=== PATIENT | female | born 1965 | race Caucasian/White ===

== ENCOUNTER → 2016-07-04 | Outpatient (CLI) | payer BC ==
[~2016-07-04] MED LIST: ALBU4TAB10 PO; CLRD24 PO
--- NOTE | 2016-07-05 14:25 | MAMMOGRAPHY REPORT ---
BILATERAL DIGITAL SCREENING MAMMOGRAM TOMOSYNTHESIS WITH CAD: 07/04/2016 CLINICAL HISTORY: Routine screening. Patient has no complaints. TECHNIQUE: Breast tomosynthesis in addition to standard 2D mammography was performed. Current study was also evaluated with a Computer Aided Detection (CAD) system. COMPARISON: Comparison is made to exams dated: 12/05/2012 mammogram, 11/17/2010 mammogram - [facility], 01/23/2007, 11/08/2009 mammogram, and 12/04/2011 mammogram - [facility]. BREAST COMPOSITION: The tissue of both breasts is heterogeneously dense, which may obscure small ma sses. FINDINGS: There is stable asymmetry in the left upper outer quadrant. The overall, the parenchymal pattern is unchanged bilaterally. No new suspicious mass, architectural distortion or cluster of mi crocalcifications is seen. IMPRESSION: ACR BI-RADS CATEGORY 1: NEGATIVE There is no mammographic evidence of malignancy. A 1 year screening mammogram is recommended. The p atient will receive written notification of the results. Approximately 10% of breast cancers are not detected with mammography. A negative mammographic repor t should not delay biopsy if a clinically suggestive mass is present. Marybeth Candelaria M.D. ay/:07/05/2016 08:04:26 Multimedia Manager: Nurys RIVERO(Ignacia)(Suki), [facility] letter sent: Normal 1/2 BI-RADS Code: ACR BI-RADS Category 1: Negative
== END | disposition home or self-care (01) ==
LOC: C.MAMM 15:29
PROVIDERS: ATTEND Family Medicine
DX: Z12.31 Encounter for screening mammogram for malignant neoplasm of breast (principal)

== ENCOUNTER → 2017-07-05 | Outpatient (CLI) | payer OTHER ==
--- NOTE | 2017-07-05 15:15 | MAMMOGRAPHY REPORT ---
BILATERAL DIGITAL SCREENING MAMMOGRAM TOMOSYNTHESIS WITH CAD: 07/05/2017 CLINICAL HISTORY: Routine screening. TECHNIQUE: Breast tomosynthesis in addition to standard 2D mammography was performed. Current study was also evaluated with a Computer Aided Detection (CAD) system. COMPARISON: Comparison is made to exams dated: 07/04/2016 mammogram, 12/05/2012 mammogram, 12/04/2011 m ammogram, 11/17/2010 mammogram, 11/08/2009 mammogram - [facility], and 01/23/2007. BREAST COMPOSITION: The tissue of both breasts is heterogeneously dense, which may obscure small mas ses. FINDINGS: No suspicious masses, calcifications, or areas of architectural distortion are noted in ei ther breast. There has been no significant interval change compared to prior exams. IMPRESSION: ACR BI-RADS CATEGORY 1: NEGATIVE There is no mammographic evidence of malignancy. A 1 year screening mammogram is recommended. The pa tient will receive written notification of the results. Approximately 10% of breast cancers are not detected with mammography. A negative mammographic report should not delay biopsy if a clinically suggestive mass is present. Jordyn Cowan M.D. ah/:07/05/2017 12:08:46 Supervisor Hard Candy: Nurys RIVERO(R)(M), [facility] letter sent: Normal 1/2 BI-RADS Code: ACR BI-RADS Category 1: Negative
== END | disposition home or self-care (01) ==
LOC: C.MAMM 08:35
PROVIDERS: ATTEND Family Medicine
DX: Z12.31 Encounter for screening mammogram for malignant neoplasm of breast (principal)

== ENCOUNTER 2023-08-14 09:07 | Observation (INO) ==
--- NOTE | 2023-08-06 13:34 | Anesthesiology Consultation ---
Date of Service August 06, 2023 Assessment & Plan (1) Encounter for pre-operative examination: Chart Review Chart Review: hand riveter initiated History Surgery Operation Date: 08/14/23 10:00 Proposed Procedures p Colonoscopy Dr. Rui Fabian MD Height/Weight Height: 5 ft 4 in Weight: 64.41 kg Allergies Allergy/AdvReac Type Severity Reaction Status Date / Time metronidazole [From Flagyl] Allergy Unknown Hives Verified 08/03/23 08:31 Medications Home Medications Medication Instructions Recorded Confirmed Last Taken peg 3350-sod sulf,tjlxn-ale-pvr See Rx Instructions PO .COMPLEX #2 07/31/23 Unknown 178.7-7.3-0.5-1.12-0.9 gram oral mL soln (Suflave) multivitamin 1 cap PO DAILY 08/03/23 08/03/23 Unknown Past Medical History Medical History Elevated glucose level on last test/no mention of pre diabetes. Borderline high cholesterol Seasonal asthma hx Borderline high blood pressure white coat syndrome Past Family History Family History Sister Breast cancer Father Colorectal cancer Prostate cancer Hypertension Mother Dyslipidemia Hypertension Denies family history of Ovarian cancer Myocardial infarction Lung cancer Past Surgical History Surgical History Hx of oral surgery Hx of hysterectomy Hx of section Social History Smoking Status: Former smoker Do You Dip or Chew Tobacco: No Smoking End Date: 1999 Hx Alcohol Use: Yes Alcohol type: wine alcohol intake frequency: other Alcohol Intake Frequency Comment: 5-6 per week Hx Substance Use: No substance use type: does not use Lab Results Chemistry (BMP) Results BMP Results: Sodium 137 mmol/L (136-145) 05/01/23 Potassium 4.5 mmol/L (3.5-5.1) 05/01/23 Chloride 103 mmol/L (98-107) 05/01/23 Carbon Dioxide 27 mmol/L (21-32) 05/01/23 Anion Gap 7 (3-11) 05/01/23 BUN 12 mg/dl (6-23) 05/01/23 Creatinine 0.76 mg/dl (0.6-1.2) 05/01/23 Glucose 89 mg/dl (70-99(Fasting)) 05/01/23 CBC Results Results Complete Blood Count Results: RBC 4.75 M/uL (4.20-5.40) 05/01/23 WBC 5.77 K/ul (4.8-10.8) 05/01/23 Hgb 15.0 g/dl (12.0-16.0) 05/01/23 Hct 45.8 % (37.0-47.0) 05/01/23 Plt Count 276 K/uL (130-400) 05/01/23
[2023-08-14] MEDS ORDERED: SIMETHICONE (ENDO) IR PRN (09:21)
--- NOTE | 2023-08-14 09:23 | History & Physical Report ---
Date of Service August 14, 2023 Assessment & Plan (1) Positive colorectal cancer screening using Cologuard test: Plan proceed with colonoscopy. risks/benefits and procedure discussed with patient, who agrees to proceed History of Present Illness Primary Care Provider: Blane Loco MD 58 yo female here for colonoscopy. Allergies Allergy/AdvReac Type Severity Reaction Status Date / Time metronidazole [From Flagyl] Allergy Unknown Hives Verified 08/14/23 09:22 Home Medications Medication Instructions Recorded Confirmed Type peg 3350-sod sulf,arwfz-gld-rbj See Rx Instructions PO .COMPLEX #2 07/31/23 Rx 178.7-7.3-0.5-1.12-0.9 gram oral mL soln (Suflave) multivitamin 1 cap PO DAILY 08/03/23 08/03/23 History Past Med/Surg History Medical History Elevated glucose level on last test/no mention of pre diabetes. Borderline high cholesterol Seasonal asthma hx Borderline high blood pressure white coat syndrome Surgical History Hx of oral surgery Hx of hysterectomy Hx of section Family History Sister Breast cancer Father Colorectal cancer Prostate cancer Hypertension Mother Dyslipidemia Hypertension Denies family history of Ovarian cancer Myocardial infarction Lung cancer Social History Smoking Status: Former smoker Tobacco Type: Cigarettes Age Quit Using Tobacco: 34; Smoking End Date: 1999; Do You Dip or Chew Tobacco: No; Hx Alcohol Use: Yes Alcohol type: wine Hx Substance Use: No Preferred Language: Khmer Communication Ability: Effective Visual Impairment: Limited Hearing Ability: Normal Claim Review Medical Director Required: No Beliefs That Will Affect Care: None marital status: Current Living Situation: Spouse current occupational status: retired How many Children do You have: 1 Feels Safe at Home: Yes Childhood Exposure to Second-Hand Smoke: No caffeine: Yes Dental Care, Regularly: Yes Physical Activity Frequency: 3-4 Times per Week Seatbelt Use: always Sunscreen Use: No Assistive Devices: Other Assistive Devices Comment: reading glasses Physical Exam Constitutional: WD/WN, vitals as above Respiratory: normal respiratory effort, lungs clear to auscultation Cardiovascular: RRR, no murmur, no edema Gastrointestinal (Abdomen): normal bowel sounds, soft, nontender, no hepatosplenomegaly Musculoskeletal: Head/Neck/Chest: normocephalic and head atraumatic Psychiatric: Orientation: alert and cooperative Affect: euthymic affect Coding Level of Care Code None Diagnoses Positive colorectal cancer screening using Cologuard test R19.5
[2023-08-14] MEDS: SODIUM CHLORIDE 0.9% 500 ML IV SCH (09:43)
--- NOTE | 2023-08-14 10:25 | GI REPORT ---
Addendum Number: 1 Addendum Date: 08/14/2023 2:08:15 PM patient vomited shortly after being sedated, after discussion with anesthesia patient will be admitted/observed overnight, hospitalist team notified and will admit her. Quintin Fabian MD 08/14/2023 2:09:10 PM This report has been signed electronically. Patient Name: Melissa Ross Procedure Date: 08/14/2023 9:30 AM Date of : 1965 Admit Type: Outpatient Age: 58 Gender: Female Attending MD: Quintin Fabian MD, Procedure: Colonoscopy Providers: Quintin Fabian MD Referring MD: Blane Loco Indications: Positive Cologuard test Medicines: Monitored Anesthesia Care Complications: vomiting Estimated Blood Loss: Estimated blood loss: none. Procedure: Pre-Anesthesia Assessment: - Prior Anticoagulants: The patient has taken no anticoagulant or antiplatelet agents. - ASA Grade Assessment: II - A patient with mild systemic disease. After I obtained informed consent, the scope was passed under direct vision. Throughout the procedure, the patient's blood pressure, pulse, and oxygen saturations were monitored continuously. The Colonoscope was introduced through the anus with the intention of advancing to the cecum. The scope was advanced to the sigmoid colon before the procedure was aborted. Medications were given. The quality of the bowel preparation was adequate to identify polyps greater than 5 mm in size. Findings: patient began vomiting shortly after starting the procedure, procedure aborted. Impression: - No specimens collected. Recommendation: - Discharge patient to home (with escort). - Resume regular diet today. - Repeat colonoscopy at the next available appointment. Quintin Fabian MD 08/14/2023 10:24:38 AM This report has been signed electronically. Note Initiated On: 08/14/2023 9:30 AM Number of Addenda: 1 I attest to the content of the Intraoperative Record and orders documented therein, exceptions below {[id number]}
[2023-08-14] MEDS ORDERED: ATROPINE SULFATE 0.1 MG/ML 10ML SYR IV PRN (10:44)
[2023-08-14] MEDS ORDERED: ALBUTEROL 0.083% NEBU SOLN 3 ML VIAL INH PRN (10:44)
[2023-08-14] MEDS ORDERED: ePHEDrine sulfate 50 MG/ML AMP IV PRN (10:44)
--- NOTE | 2023-08-14 11:26 | XRay Report ---
XR chest 1V portable CLINICAL HISTORY: Possible aspiration during colonoscopy COMPARISON STUDY: Chest radiograph June 01, 2008. Chest CT April 14, 2010. FINDINGS: Mild left lung volume loss is noted. There is no pneumothorax or pleural effusion. Right moise ng is clear. Multifocal airspace opacities within the left mid and lower lung is present. There is no evidence for pulmonary edema. Cardiomediastinal silhouette is unremarkable. IMPRESSION: 1. Multifocal left mid and lower lung airspace opacities. Given the clinical history, the findings ar e suspicious for aspiration pneumonitis. Pneumonia could appear similar. Radiographic follow-up to en sure resolution is recommended. 3. Mild left lung volume loss. ACT 112: Negative or not required by law. Electronically signed by: Ranjeet Bush M.D. 08/14/2023 11:25 AM
--- NOTE | 2023-08-14 13:19 | Communication Note ---
Date of Service: August 14, 2023 At the beginning of pt's colonscopy she vomited green brown tinged fluid. She desaturated very briefly in to the sixties. The procedure was stopped and pt was taken to PACU. There she c/o chest pain and tightness. Sat was in the 90's on supplemental O2. On exam she had marked ronchi and wheezing, left > right. She was given albuterol neb treatment with fairly good results. CXR showed possible opacities in left lung. Approximately an hour later she felt better but on exam faint wheezes and rochi persisted. Exam was unchanged 45 minutes later. We discussed overnight observation vs discharge to home. Pt preferred to stay overnight. I discussed this with Dr Gloria who agreed to keep her. He will arrange admission.
--- NOTE | 2023-08-14 13:56 | History & Physical Report ---
Date of Service August 14, 2023 Assessment & Plan (1) Aspiration pneumonitis: Plan: Post colonoscopy with nausea, vomiting Observation to assess for worsening overnight Incentive spirometer, flutter valve No high risk concerns for pneumonia therefore antibiotics deferred - consider PRN dose on discharge if she starts to get worse or febrile Follow up CXR in 4 weeks to assess for resolution (2) Tachycardia: Plan: Suspect secondary to duoneb and current aspiration, monitor over night on telemetry Plan VTE Prophylaxis - low risk Diet - clear liquid, advance as tolerated Disposition - observation on med/tele Admission and Anticipated Discharge Date Admission Date: August 14, 2023 History of Present Illness Chief Complaint: Aspiration during colonoscopy Primary Care Provider: Blane Loco MD Melissa Hassan is a 58 year old female who underwent colonoscopy which was abandoned earlier today due to nausea and vomiting. CXR after vomiting concerning for aspiration in left lung and she was significantly hypoxic briefly into the 60s with rhonchi and wheezing. She improved after a duoneb and no longer hypoxic on room air. Dr Fabian requested observation overnight in hospital. She continues to feel slightly nauseous but significantly better when seen. No current chest pain or shortness of breath. Allergies Allergy/AdvReac Type Severity Reaction Status Date / Time metronidazole [From Flagyl] Allergy Unknown Hives Verified 08/14/23 09:22 Home Medications Medication Instructions Recorded Confirmed Type peg 3350-sod sulf,dphoi-gsg-pbg See Rx Instructions PO .COMPLEX #2 07/31/23 Rx 178.7-7.3-0.5-1.12-0.9 gram oral mL soln (Suflave) multivitamin 1 cap PO DAILY 08/03/23 08/14/23 History Past Med/Surg History Medical History Elevated glucose level on last test/no mention of pre diabetes. Borderline high cholesterol Seasonal asthma hx Borderline high blood pressure white coat syndrome Surgical History Hx of oral surgery Hx of hysterectomy Hx of section Family History Sister Breast cancer Father Colorectal cancer Prostate cancer Hypertension Mother Dyslipidemia Hypertension Denies family history of Ovarian cancer Myocardial infarction Lung cancer Social History Smoking Status: Former smoker Tobacco Type: Cigarettes Age Quit Using Tobacco: 34; Smoking End Date: 1999; Do You Dip or Chew Tobacco: No; Hx Alcohol Use: Yes Alcohol type: wine Hx Substance Use: No Preferred Language: Faroese Communication Ability: Effective Visual Impairment: Limited Hearing Ability: Normal M48/M60 Tank Driver Required: No Beliefs That Will Affect Care: None marital status: Current Living Situation: Spouse current occupational status: retired How many Children do You have: 1 Feels Safe at Home: Yes Childhood Exposure to Second-Hand Smoke: No caffeine: Yes Dental Care, Regularly: Yes Physical Activity Frequency: 3-4 Times per Week Seatbelt Use: always Sunscreen Use: No Assistive Devices: Other Assistive Devices Comment: reading glasses Review of Systems Review of Systems: All systems reviewed & are unremarkable except as noted in HPI & below Physical Exam Constitutional: WD/WN, vitals as above ENMT: external ear and nose normal, oropharynx normal Respiratory: normal respiratory effort; no respiratory distress Auscultation: + crackles (mild left posterior); breath sounds present, no diminished lung sounds, no rales, no rhonchi and no wheezes Cardiovascular: Rate/Rhythm: regular rhythm and + tachycardic Heart Sounds: no murmur Extremities: normal capillary refill; no calf tenderness and no pedal edema Gastrointestinal (Abdomen): normal bowel sounds, soft, nontender, no hepatosplenomegaly Musculoskeletal: no cyanosis or clubbing, extremities motor strength 5/5 Skin: no rashes, warm and dry Neurologic: moves all extremities and awake; not confused Psychiatric: A+Ox3, euthymic affect Results & Data Results & Data Vital Signs (Past 12 Hours) Vital Signs Temp Pulse Resp BP Pulse Ox O2 Del Method O2 Flow Rate 08/14/23 11:41 112 H 20 150/99 H 99 Room Air 08/14/23 11:26 117 H 20 173/103 H 92 Room Air 08/14/23 11:11 131 H 20 144/73 H 98 Oxymask 2 08/14/23 10:58 87 20 148/90 H 96 Oxymask 6 08/14/23 10:41 100 H 20 150/102 H 96 Oxymask 6 08/14/23 10:28 100 H 20 150/102 H 96 Oxymask 6 08/14/23 09:33 173/109 H 08/14/23 09:26 36.5 C 104 H 16 96 Room Air Laboratory Results Abnormal lab results 08/14/23 Range/Units 19:15 WBC 17.95 H (4.8-10.8) K/ul RDW Std Deviation 46.7 H (36.4-46.3) fL Neut # (Auto) 15.82 H (1.40-6.50) K/uL [place] # (Auto) 0.78 H (0.11-0.59) K/uL Sodium 132 L (136-145) mmol/L Carbon Dioxide 20 L (21-32) mmol/L Glucose 136 H (70-99(Fasting)) mg/dl Magnesium 1.6 L (1.7-2.4) mg/dl Diagnostic Findings XR chest 1V portable CLINICAL HISTORY: Possible aspiration during colonoscopy COMPARISON STUDY: Chest radiograph June 01, 2008. Chest CT April 14, 2010. FINDINGS: Mild left lung volume loss is noted. There is no pneumothorax or pleural effusion. Right lung is clear. Multifocal airspace opacities within the left mid and lower lung is present. There is no evidence for pulmonary edema. Cardiomediastinal silhouette is unremarkable. IMPRESSION: 1. Multifocal left mid and lower lung airspace opacities. Given the clinical history, the findings are suspicious for aspiration pneumonitis. Pneumonia could appear similar. Radiographic follow-up to ensure resolution is recommended. 3. Mild left lung volume loss. ECG Rate (beats per minute): 114 Rhythm: sinus tachycardia Findings: + other (non-specific ST abnormality in anterior leads) Comparison ECG Date: from (April 14, 2010) Change: the following changes noted (Nonspecific ST abnormality now present Anterior leads) Code Status & VTE Plan Code Status Full VTE Prophylaxis Plan VTE Prophylaxis will be ordered: No PG Care Time/CCT Total # of Minutes Spent Total Time Spent with Patient: Total time spent is greater than 50% in coordination of care (as documented) at patient's floor/unit and/or counseling patient: Coding Level of Care Code 26302 INT INP/OBS CARE 2/55MIN Diagnoses Aspiration pneumonitis J69.0 Tachycardia R00.0
--- NOTE | 2023-08-14 14:21 | Anesthesiology Progress Note ---
Date of Service August 14, 2023 Anesthesia Post Procedure Vital Signs Vital Signs: Temp Pulse Resp BP Pulse Ox O2 Del Method O2 Flow Rate 08/14/23 11:41 112 H 20 150/99 H 99 Room Air 08/14/23 11:26 117 H 20 173/103 H 92 Room Air 08/14/23 11:11 131 H 20 144/73 H 98 Oxymask 2 08/14/23 10:58 87 20 148/90 H 96 Oxymask 6 08/14/23 10:41 100 H 20 150/102 H 96 Oxymask 6 08/14/23 10:28 100 H 20 150/102 H 96 Oxymask 6 08/14/23 09:33 173/109 H 08/14/23 09:26 36.5 C 104 H 16 96 Room Air Transfer of Care Handoff Completed per policy Notes Mental Status: alert / awake / arousable and participated in evaluation Patient Amnestic to Procedure: Yes Nausea / Vomiting: adequately controlled Pain: adequately controlled Airway Patency, RR, SpO2: stable & adequate BP & HR: stable & adequate Hydration State: stable & adequate Anesthetic Complications: no major complications apparent Notes: Pt to be admitted. See previous note for details.
[2023-08-14] MEDS ORDERED: ACETAMINOPHEN 325 MG TAB PO PRN (15:07)
[2023-08-14] MEDS ORDERED: ONDANSETRON INJ 2 MG/ML 2 ML VIAL IV PRN (15:07)
[2023-08-14] MEDS: MIDAZOLAM HCL 1 MG/ML 2ML VIAL ONE (15:08)
[2023-08-14] MEDS: LIDOCAINE 2% 2 ML VIAL/AMP(20MG/ML) INFIL ONE (15:09)
[2023-08-14] MEDS: PROPOFOL IV EMULSION 10 MG/ML 20 ML VIAL IV ONE (15:09)
[2023-08-14] MEDS: ONDANSETRON INJ 2 MG/ML 2 ML VIAL ONE (15:09)
--- NOTE | 2023-08-14 15:15 | Electrocardiogram Report ---
Test Reason : Blood Pressure : / mmHG Vent. Rate : 114 BPM Atrial Rate : 114 BPM P-R Int : 152 ms QRS Dur : 080 ms QT Int : 326 ms P-R-T Axes : 066 032 079 degrees QTc Int : 449 ms Sinus tachycardia Possible Left atrial enlargement Nonspecific ST abnormality Abnormal ECG When compared with ECG of 14-APR-2010 12:04, Nonspecific ST abnormality now present Anterior leads Confirmed by Peng Elias ([id number]) on 08/14/2023 3:15:28 PM Referred By: Blane Loco Confirmed By:Peng Elias
[2023-08-14 19:46] LABS: Basophils # (auto) 0.07 K/uL (0.00-0.20); Basophils % (auto) 0.4 %; Hematocrit (blood only) 42.8 % (37.0-47.0); Hemoglobin 14.4 g/dl (12.0-16.0); Immature Granulocytes # (auto) 0.06 K/uL (0.01-0.20); Immature Granulocytes % (auto) 0.3 %; Lymphocytes # (auto) 1.22 K/uL (1.20-3.40); Lymphocytes % (auto) 6.8 %; Mean Corpuscular Hemoglobin 31.4 pg (25.0-34.0); Mean Corpuscular Hgb Conc 33.6 g/dL (32.0-36.0); Mean Corpuscular Volume 93.2 fL (80.0-100.0); Mean Platelet Volume 9.8 fL (9.4-12.4); Monocytes # (auto) 0.78 K/uL (0.11-0.59); Monocytes % (auto) 4.3 %; Neutrophils # (auto) 15.82 K/uL (1.40-6.50); Neutrophils % (auto) 88.2 %; Platelet Count 289 K/uL (130-400); RDW Coefficient of Variation 13.6 % (11.5-14.5); RDW Standard Deviation 46.7 fL (36.4-46.3); Red Blood Count 4.59 M/uL (4.20-5.40); White Blood Count 17.95 K/ul (4.8-10.8)
[2023-08-14 20:02] LABS: BUN Creatinine Ratio 11.4 (10-20); Calcium 9.3 mg/dl (8.6-10.3); Creatinine Clr Calc Pharmacy 75.6 ml/min; Est GFR (African American) 110.7 ml/min; Est GFR (Non-African American) 95.5 ml/min; Magnesium 1.6 mg/dl (1.7-2.4); Potassium 4.3 mmol/L (3.5-5.1)
[2023-08-14] MEDS: MAGNESIUM SULFATE / D5W 1 GM/100 ML BAG IV SCH (21:20)
[2023-08-14] MEDS: SODIUM CHLORIDE 0.9% 1,000 ML IV ONE (21:20)
[2023-08-14] MEDS: SODIUM CHLORIDE 0.9% 1,000 ML IV SCH (22:20)
[2023-08-15 08:37] LABS: Basophils # (auto) 0.06 K/uL (0.00-0.20); Basophils % (auto) 0.7 %; Eosinophils # (auto) 0.06 K/uL (0.00-0.50); Eosinophils % (auto) 0.7 %; Hematocrit (blood only) 40.7 % (37.0-47.0); Immature Granulocytes # (auto) 0.02 K/uL (0.01-0.20); Immature Granulocytes % (auto) 0.2 %; Lymphocytes # (auto) 2.23 K/uL (1.20-3.40); Lymphocytes % (auto) 24.7 %; Mean Corpuscular Hemoglobin 30.9 pg (25.0-34.0); Mean Corpuscular Hgb Conc 31.9 g/dL (32.0-36.0); Mean Corpuscular Volume 96.7 fL (80.0-100.0); Mean Platelet Volume 9.8 fL (9.4-12.4); Monocytes # (auto) 0.72 K/uL (0.11-0.59); Neutrophils # (auto) 5.93 K/uL (1.40-6.50); Neutrophils % (auto) 65.7 %; Platelet Count 257 K/uL (130-400); RDW Coefficient of Variation 13.8 % (11.5-14.5); RDW Standard Deviation 49.4 fL (36.4-46.3); Red Blood Count 4.21 M/uL (4.20-5.40); White Blood Count 9.02 K/ul (4.8-10.8)
[2023-08-15 09:11] LABS: Calcium 8.6 mg/dl (8.6-10.3); Magnesium 2.2 mg/dl (1.7-2.4)
[2023-08-15 09:16] LABS: BUN Creatinine Ratio 10.8 (10-20); Creatinine Clr Calc Pharmacy 81.5 ml/min; Est GFR (African American) 113.4 ml/min; Est GFR (Non-African American) 97.9 ml/min
--- NOTE | 2023-08-15 16:41 | Discharge Summary ---
Date of Service August 15, 2023 Admission HPI Per Admitting Provider Melissa Hassan is a 58 year old female who underwent colonoscopy which was abandoned earlier today due to nausea and vomiting. CXR after vomiting concerning for aspiration in left lung and she was significantly hypoxic briefly into the 60s with rhonchi and wheezing. She improved after a duoneb and no longer hypoxic on room air. Dr Fabian requested observation overnight in hospital. She continues to feel slightly nauseous but significantly better when seen. No current chest pain or shortness of breath. Admission Exam Per Admitting Provider Constitutional: WD/WN, vitals as above ENMT: external ear and nose normal, oropharynx normal Respiratory: normal respiratory effort; no respiratory distress Auscultation: + crackles (mild left posterior); breath sounds present, no diminished lung sounds, no rales, no rhonchi and no wheezes Cardiovascular: Rate/Rhythm: regular rhythm and + tachycardic Heart Sounds: no murmur Extremities: normal capillary refill; no calf tenderness and no pedal edema Gastrointestinal (Abdomen): normal bowel sounds, soft, nontender, no hepatosplenomegaly Musculoskeletal: no cyanosis or clubbing, extremities motor strength 5/5 Skin: no rashes, warm and dry Neurologic: moves all extremities and awake; not confused Psychiatric: A+Ox3, euthymic affect Principal Diagnosis Aspiration pneumonitis Discharge Exam General: No acute distress, nondiaphoretic, well-developed, well-nourished. Skin: The skin was without rashes, erythema, edema, or bruising. Cardiac: Regular rate and rhythm without murmurs gallops or rubs. Pulm: No respiratory distress. Some bronchial coughing. Mild crackles in left posterior bases. No diminished lung sounds, no rales, no rhonchi, no wheezes. No retractions or accessory muscle use. Abdominal: Positive bowel sounds x 4. Soft, nontender, without masses or organomegaly. No guarding or rebound tenderness. Neuro: A&O x3. No focal neurological deficits. Discharge Data Allergies Allergy/AdvReac Type Severity Reaction Status Date / Time metronidazole [From Flagyl] Allergy Unknown Hives Verified 08/14/23 09:22 Procedures Performed Operation Date: 08/14/23 10:00 Actual Procedures p Colonoscopy - Quintin Fabian MD Hospital Course (1) Aspiration pneumonitis: - Patient underwent colonoscopy on 08/14/2023 which was abandoned due to nausea and vomiting. CXR after vomiting concerning for aspiration and left lung. Patient was significantly hypoxic briefly into the 60s with rhonchi and wheezing. She improved after a DuoNeb and remained stable on room air. - No high risk concerns for pneumonia, therefore antibiotics deferred at this time. - Patient was admitted for observation overnight, she remained stable and felt ready to go home. - Upon discharge -- Continue using incentive spirometer and flutter valve -- Ventolin HFA 2 puffs every 4 hours as needed to be used with spacer -- Mucinex 1200 mg twice daily for a few days -- Cefdinir prescription sent to the pharmacy, which can be taken if worsening respiratory symptoms over the next 48 hours. -- Recommend follow-up with PCP in 1-2 weeks. - Recommend chest x-ray in 4 weeks to assess for resolution of aspiration pneumonitis. (2) Tachycardia: Suspect secondary to duoneb and current aspiration, monitored over night on telemetry where patient remained in normal heart rate. Plan CODE STATUS: Full code Total Time Total Time Spent Total Time Spent (In Minutes): Greater than 30 minutes spent completing this discharge process including direct patient care, medication reconciliation, documentation, review of labs and images, and coordination of care. Discharge Plan Discharge Items Patient Disposition: Home - Self-Care Reason For Visit: ASPIRATION PNEUMONITIS Discharge Diagnosis: positive cologuard Aspiration pneumonitis Activity: Per Instructions section Non-emergency contact: Primary Care Provider Call non-emergency contact if: you have any medication questions and your symptoms worsen Follow-up/Referrals: Blane Loco MD [Primary Care Provider] - 08/22/23 2:45 pm Diet: Regular Addtl Attending Provider Instructions: Mrs. Hassan, You were admitted to the hospital because of concern for aspiration during your colonoscopy. This is what caused a brief episode of hypoxia and wheezing. You did improve after a DuoNeb and have not required supplemental oxygen since then. You do not have any high risk concerns for pneumonia, therefore antibiotics were deferred. You were monitored overnight in the hospital, and since you continue to feel well, remain afebrile, and have no worsening of symptoms you can be discharged home. Upon discharge from the hospital: * Please continue to use your incentive spirometer and flutter valve for 1 week. * Use Ventolin (albuterol) inhaler 2 puffs every 4 hours as needed for respiratory symptoms. -- Use this with the spacer. This will help you breathe in the medicine more easily. -- This was sent to the [facility] on [facility]. * Take Mucinex 1200 mg twice daily for the next few days. -- This will help expectorate anything in your lungs. -- You can get this over the counter (OTC). * Take antibiotic if you notice worsening respiratory symptoms over the next 48 hours. -- This antibiotic is called Cefdinir (300 mg) x 7 days. - Antibiotics increase the risk of Clostridium difficile infection (C. diff). - You can take the antibiotic with a probiotic or cup of yogurt or ice cream to reduce the risk of developing C. diff. -- This prescription was sent to your pharmacy. -- If you do not feel that you need an antibiotic based on your symptoms, you do not need to fill / picker machine operator the prescription. * Please obtain a chest x-ray in 4 weeks to assess for resolution of the aspiration pneumonitis. Your PCP can order this at your follow-up appointment. * I recommend following up with your PCP in 1-2 weeks. You can call their office to schedule this appointment for a date and time that works for you. Please call your PCP immediately if you experience any of the following: Fever > 100.4 or chills, shortness of breath, productive cough, or any other concerns of developing sickness. It was a pleasure taking care of you while you were in the hospital, Victorina Herrera PA-C Addtl Traffic Maintenance Officer Provider Instructions: Per Gastroenterology: --No exercising or heavy lifting for 24 hours --Do not drink alcohol for the rest of the day --Do not drive a car or operate machinery until the day after the procedure --Do not make any important life decisions or sign important papers in the next 24 hours Pending Studies at Discharge: No Stand-Alone Forms: [facility], Smoking Cessation Medications and DC Order Prescriptions: New albuterol sulfate [Ventolin HFA] 90 mcg/actuation HFA aerosol inhaler 1 inh inhalation Q4H PRN (Reason: shortness of breath or wheezing) Qty: 8.5 0RF cefdinir 300 mg capsule 300 mg PO BID Qty: 7 0RF Continued Suflave 178.7-7.3-0.5 gram recon soln See Rx Instructions PO .COMPLEX Qty: 2 0RF Rx Instructions: TAKE DIRECTED PER SPLIT DOSE INSTRUCTIONS BIN: [id number] PCN: [id number] GROUP: [id number] multivitamin Capsule 1 cap PO DAILY Discharge Orders: Discharge Order (Routine); Ordered 08/15/23 Ordered By: Victorina Herrera Admission Data Admit Date/Time: 08/14/23 13:43 Attending Provider: Trev Abraham Admit Provider: Trev Correia Primary Care Provider: Blane Loco Other Interventions: Discharge Summary Assessment (RN) Last Done: 08/15/23 16:24 Coding Level of Care Code 32272 INP/OBS DISCH >30 MIN Diagnoses Aspiration pneumonitis J69.0 Tachycardia R00.0
== END 2023-08-15 17:10 | disposition home or self-care (01) ==
LOC: 2N 09:07 → ENDO 09:07 → SUATTDRO 13:43